=== PATIENT | male | born 1985 | race Two or more races ===

== ENCOUNTER 2018-10-12 04:18 | Emergency (ER) | payer OTHER ==
[2018-10-12] MEDS: ONDANSETRON 4 MG INJ IV (04:47)
[2018-10-12] MEDS: HYDROmorphONE 1 MG/ML SYG IV (04:47)
[2018-10-12] MEDS: SOD CHLORIDE 0.9% 1,000 ML IV (04:47)
[2018-10-12] MEDS: ACETAMINOPHEN 500 MG TAB PO (05:03)
[2018-10-12 05:28] LABS: ADD UMIC YES; UR ASCORBIC ACID NEGATIVE (NEGATIVE); UR BACTERIA FEW /HPF (NONE SEEN); UR BILIRUBIN (Dip) NEGATIVE (NEGATIVE); UR BLOOD (Dip) NEGATIVE (NEGATIVE); UR CLARITY CLOUDY (CLEAR); UR COLOR YELLOW (YELLOW); UR GLUCOSE (Dip) NEGATIVE (NEGATIVE); UR KETONES (Dip) TRACE mg/dL (NEGATIVE); UR LEUKOCYTE ESTERASE (Dip) 3+ Leu/ul (NEGATIVE); UR MUCUS FEW /HPF (NONE SEEN); UR NITRITE (Dip) NEGATIVE (NEGATIVE); UR RBC 22 /HPF (0-5); UR SPECIFIC GRAVITY (Dip) 1.017 (1.003-1.030); UR TOTAL PROTEIN (Dip) 1+ mg/dl (NEGATIVE); UR UROBILINOGEN (Dip) 2+ mg/dL (NEGATIVE); UR WBC > 182 /HPF (0-5)
[2018-10-12] MEDS ORDERED: LIDOCAINE 1% (MDV) 20 ML INJ (05:50)
[2018-10-12] MEDS: CEFTRIAXONE 1 GM INJ IM (05:57)
[2018-10-12 06:07] LABS: ADD MAN DIFF? NO
[2018-10-12 06:09] LABS: ABNORMAL IP MESSAGE 1; BASOPHIL # 0.1 10^3/ul (0.0-0.1); BASOPHILS % 0.2 % (0.0-2.0); EOSINOPHILS % 0.1 % (0.0-7.0); HEMOGLOBIN 14.7 g/dl (14.0-18.0); LYMPHOCYTES # 0.7 10^3/ul (0.8-2.9); LYMPHOCYTES % 2.9 % (15.0-51.0); MEAN CORPUSCULAR HEMOGLOBIN 31.2 pg (29.0-33.0); MEAN CORPUSCULAR HGB CONC 35.9 g/dl (32.0-37.0); MEAN PLATELET VOLUME 10.4 fl (7.4-10.4); MONOCYTE # 1.5 10^3/ul (0.3-0.9); MONOCYTES % 6.2 % (0.0-11.0); NEUTROPHIL # 21.2 10^3/ul (1.6-7.5); NEUTROPHILS % 89.2 % (39.0-77.0); PLATELET COUNT 223 10^3/UL (140-415); POSITIVE DIFF @See below; RED BLOOD COUNT 4.71 10^6/ul (4.70-6.10); RED CELL DISTRIBUTION WIDTH 11.9 % (11.5-14.5)
[2018-10-12 06:09] LABS: WHITE BLOOD COUNT 23.7 10^3/ul (4.8-10.8)
[2018-10-12 06:26] LABS: ANION GAP 7 (5-13); BLOOD UREA NITROGEN 8 mg/dl (7-20); CALCIUM 9.3 mg/dl (8.4-10.2); CARBON DIOXIDE 28 mmol/L (21-31); CHLORIDE 102 mmol/L (97-110); CREATININE 0.82 mg/dl (0.61-1.24); Estimated GFR > 60 mL/min (>60); GLUCOSE 104 mg/dl (70-220); POTASSIUM 4.1 mmol/L (3.5-5.1); SODIUM 137 mmol/L (135-144)
== END 2018-10-12 06:50 | disposition home or self-care (01) ==
LOC: E/R 04:18
DX: N30.00 Acute cystitis without hematuria (principal)
CPT/HCPCS: 74176; 80048; 81001; 85025; 87086; 96372; 99285-25